=== PATIENT | female | born 1955 | race Caucasian/White ===

== ENCOUNTER 2019-03-20 08:58 | Outpatient (CLI) | payer MEDICARE, SELFPAY ==
[2019-03-20 10:40] LABS: ALT 27 U/L (14-59); AST 15 U/L (15-37); Anion Gap 9.9 mmol/L (3-11); BUN 14 mg/dL (7-18); CO2 28.1 mmol/L (21.0-32.0); CREATININE 0.64 mg/dL (0.55-1.02); Calcium 8.9 mg/dL (8.5-10.1); Chloride 99 mmol/L (98-107); Cholesterol 283 mg/dL (50-200); Glucose 310 mg/dL (70-100); HDL Cholesterol 47 mg/dL (40-60); Potassium 4.4 mmol/L (3.5-5.1); Sodium 137 mmol/L (136-145); Triglyceride 404 mg/dL (30-150)
[2019-03-20 10:43] LABS: Hemoglobin A1C 12.6 % (4.5-6.2)
[2019-03-20 11:00] LABS: LDL CHOLESTEROL 174 mg/dL (<100)
== END 2019-03-20 09:18 ==
PROVIDERS: PCP Nurse Practitioner Family; Visit Provider Nurse Practitioner Family
DX: E11.9 Type 2 diabetes mellitus without complications (principal); E66.9 Obesity, unspecified
CPT/HCPCS: 36415; 80048; 80061; 83721; 83036; 84450; 84460

== ENCOUNTER 2019-03-24 12:40 | Outpatient (REF) | payer MEDICARE, BC, SELFPAY ==
--- NOTE | 2019-03-24 11:30 | PAPFT_PTH ---
PATIENT: Galen Webster LOC: [facility] U#:[id number] AGE/SX: 63/F ROOM: RE03/24/[address]: Barbi Mcdonald : 1955 BED: DIS: 03/24/2019 SPEC #: [id number] RECD: 03/25/19 12:59 STATUS: LAUREN REQ #: [id number] RENEE: 03/24/19 11:[address]: Barbi Mcdonald DEPT: [facility] Cytology RECD BY: Haritha Chambers Tissues: 1 - CX/ENDOCX FOR PAP SMEARS Procedures: PAP THIN PREP/UVM Screening HPV DNA PROBE Comments: [id number]
== END 2019-03-24 13:00 ==
LOC: NCHCN 12:40
PROVIDERS: PCP Nurse Practitioner Family; Visit Provider Nurse Practitioner Family
DX: Z12.4 Encounter for screening for malignant neoplasm of cervix (principal); Z11.51 Encounter for screening for human papillomavirus (HPV)
CPT/HCPCS: 88142; 87624

== ENCOUNTER 2021-04-07 08:48 | Emergency (ER) | payer MEDICARE, BC, SELFPAY ==
[2021-04-07 09:02] VITALS: BP 168/79; PULSE 98; RESP 18; TEMP 36.7; O2SAT 99
--- NOTE | 2021-04-07 09:15 | DI.RAD_ITS ---
Exam(s) XR HIP RT COMPLETE AP PELVIS EXAM: XR HIP RT COMPLETE AP PELVIS CLINICAL HISTORY: right hip pain. TECHNIQUE: 2D digital imaging was performed of the right hip. Two images were obtained. AP pelvis a nd lateral right hip views were obtained. COMPARISON: No exams were available for comparison FINDINGS: BONES: No acute fracture is present. No bony destructive lesion is seen. JOINTS: No dislocation present. There are marked degenerative changes of the right hip with significa nt loss of the joint space, subchondral sclerosis and cysts and hypertrophic spurring. Degenerative changes are seen in the lower lumbar spine and left hip. SOFT TISSUE: Normal. IMPRESSION: No acute fracture or dislocation. Severe osteoarthritis of the right hip. DATA REPOSITORY: RADIATION DOSE DELIVERED:
--- NOTE | 2021-04-07 09:15 | DI.RAD_ITS ---
Exam(s) XR KNEE RT 3V AP,LAT,ANTONIO EXAM: XR KNEE RT 3V AP,LAT,ANTONIO CLINICAL HISTORY: right knee pain. TECHNIQUE: 2D digital imaging was performed of the right knee. Three views obtained. AP, lateral an d PA tunnel views were obtained. COMPARISON: No exams were available for comparison FINDINGS: BONES: No acute fracture is present. No bony destructive lesion is seen. JOINTS: There are severe degenerative changes of the right knee with joint space narrowing and periar ticular spurring most marked in the lateral femoral tibial joint and the patellofemoral joint. There is a small suprapatellar joint effusion. SOFT TISSUE: Normal. IMPRESSION: 1. No acute fracture or dislocation. 2. Severe osteoarthritis of the right knee. DATA REPOSITORY: RADIATION DOSE DELIVERED:
--- NOTE | 2021-04-07 09:15 | DI.RAD_ITS ---
Exam(s) XR ELBOW RT COMPLETE EXAM: XR ELBOW RT COMPLETE CLINICAL HISTORY: right elbow pain. TECHNIQUE: 2D digital imaging was performed of the left elbow. Images were obtained. AP, lateral and oblique views were obtained. COMPARISON: No exams were available for comparison FINDINGS: BONES: No acute fracture is present. No bony destructive lesion is seen. JOINTS: The elbow is normally aligned. No joint effusion is seen. Mild degenerative changes are prese nt. SOFT TISSUE: Normal. IMPRESSION: No acute fracture or dislocation. DATA REPOSITORY: RADIATION DOSE DELIVERED:
[2021-04-07] MEDS: Acetaminophen 325 MG TAB 650 MG PO (09:42)
--- NOTE | 2021-04-07 10:35 | ED.GENADUL_ITS ---
Discharge Plan Disposition Patient Disposition: HOME Condition: Stable Discharge Details Clinical Impression: Acute hip pain, Elbow injury, Acute knee pain Primary Care Provider: Barbi Mcdonald ED Provider: Haritha Monet Home Meds and New Rx's Prescriptions: New diclofenac sodium 1 % kit 4 g topical QID Qty: 1 RF: 0 Continued (DME) compression socks, large [Medicool's Diasox Large] 1 EACH misc 1 ea EXT DAILY RF: 0 lisinopril 5 MG tablet 5 mg PO DAILY RF: 0 metformin 500 MG tablet extended release 24 hr 1,000 mg PO DAILY RF: 0 atorvastatin 40 mg tablet 40 mg PO DAILY RF: 0 aspirin 81 mg Tablet 81 mg PO DAILY RF: 0 Discharge Instructions Instructions: Knee Pain (ED), Leg Pain (ED) Additional Instructions: Take Tylenol 650 mg as needed for pain Voltaren gel topically Use your assistive devices Follow-up with primary care physician for repeat x-ray in 1 week with persistent pain Return earlier should you have new or worsening complaints Referrals: Barbi Mcdonald [Primary Care Provider] - Discharge Data Discharge Date/Time-TO BE ENTERED AT DEPARTURE: 04/07/21 10:50 Medical Decision Making X-ray shows significant arthritis but do not show any evidence of acute fracture I did recommend tetanus, patient has declined, she is aware of the risk associated with this decision She will follow up with her orthopedist Repeat x-ray in 1 week pain recommended Has pain at home Ambulatory with antalgic steady gait Voltaren gel supplied We will take Tylenol Return precautions discussed and patient expressed understanding, discharged home in stable condition Blood pressure recheck by primary care physician in the setting recommended, no signs or symptoms related to his elevated blood pressure appreciated on exam Medical Records Medical records reviewed: Yes I reviewed the patient's medical records. HPI General Mode of arrival: ambulatory . Date/Time Provider Initiated Documentation: 04/07/21 09:00 . Limitations to Documentation: no limitations . Information obtained by: patient . HPI Narrative: This 65-year-old female presents with mechanical fall over her dog yesterday. She denies any head injury or loss of consciousness. She has pain to the right elbow, right hip, and right knee. She denies any strength or sensation change. Pain exacerbated with walking. Denies any flank or abdominal pain. Denies any associated dizziness. Related Data Home Medications Medication Instructions Recorded Confirmed compression socks, large 12/31/13 04/01/14 [Medicool's Diasox Large] lisinopril 5 mg PO DAILY 04/01/14 04/07/21 metformin 1,000 mg PO DAILY 04/01/14 04/07/21 aspirin 81 mg PO DAILY 04/07/21 04/07/21 atorvastatin 40 mg PO DAILY 04/07/21 04/07/21 diclofenac sodium 4 g TOPICAL QID #1 ea 04/07/21 Previous Rx's Medication Instructions Recorded diclofenac sodium 4 g TOPICAL QID #1 ea 04/07/21 Allergies Allergy/AdvReac Type Severity Reaction Status Date / Time venom-honey bee Allergy Intermediate Unverified 04/07/21 09:13 [bee venom (honey bee)] General Stated Complaint: Orthopedic LAINA: 4 Review of Systems All systems reviewed & are unremarkable except as noted in HPI and below PFSH Social History Smoking/Tobacco Use Status: Never Smoking risk assessment performed?: Yes Alcohol Intake: never Drug use: Never Substance use type: does not use Exam Const General: cooperative, comfortable and no acute distress Orientation: alert and oriented x3 HENMT Head: normal to inspection Eyes Pupils: PERRL Neck Other: No midline tenderness Chest Chest: normal inspection of the chest Other: No tenderness or crepitus Resp Effort & Inspection: normal respiratory effort Auscultation: clear to auscultation bilaterally Cardio Rate: regular rate Rhythm: regular rhythm GI Inspection: normal to inspection Auscultation: normal bowel sounds Other: No abdominal tenderness at this trauma Back/Spine/Pelvis Back: no CVA tenderness Thoracic/Lumbar Spine: thoracic and lumbar spine normal to inspection Skin General skin exam: no rashes or lesions noted Neuro General: patient alert and patient oriented x3 Cranial Nerves: CN's II-XI intact bilaterally Gait: normal gait Other: GCS 15, sensation intact extremities Extrem Other: Mild tenderness with abrasion to right elbow with abrasion noted, range of motion intact, strength and sensation intact, no tenderness to shoulder or wrist Tenderness to palpation to right hip and knee, mild swelling noted to right knee, ambulatory with antalgic gait No obvious laxity or deformity, neurovascularly Course Vital Signs Vital signs: Vital Signs Temperature 36.7 C 04/07/21 09:02 Pulse 98 H 04/07/21 09:02 Respiratory Rate 18 04/07/21 09:02 Blood Pressure 168/79 H 04/07/21 09:02 Pulse Oximetry 99 04/07/21 09:02 Temperature 36.7 C 04/07/21 09:02 Temperature Source Skin 04/07/21 09:02 Pulse 98 H 04/07/21 09:02 Respiratory Rate 18 04/07/21 09:02 Respiratory Effort 04/07/21 09:07 Blood Pressure 168/79 H 04/07/21 09:02 Pulse Oximetry 99 04/07/21 09:02 Oxygen Delivery Method Room Air 04/07/21 09:02 Oxygen Flow Rate 0 04/07/21 09:02 Pain Level 5 04/07/21 09:42 Comment 04/07/21 09:02
== END 2021-04-07 10:50 | disposition home or self-care (01) ==
PROVIDERS: Emergency Provider Physician Assistant; PCP Nurse Practitioner Family
DX: M25.551 Pain in right hip (principal); M25.521 Pain in right elbow; M25.561 Pain in right knee; W18.39XA Other fall on same level, initial encounter
CPT/HCPCS: 73562; 99284; 73080; 73502; 99283

== ENCOUNTER 2021-07-12 02:43 | Outpatient (CLI) | payer MEDICARE, BC, SELFPAY ==
[2021-07-12 16:53] LABS: ALT 33 U/L (14-59); AST 16 U/L (15-37); Anion Gap 9.1 mmol/L (3-11); BUN 20 mg/dL (7-18); CO2 26.9 mmol/L (21.0-32.0); CREATININE 0.7 mg/dL (0.55-1.02); Calcium 9.4 mg/dL (8.5-10.1); Calculated LDL 65 mg/dL (<100); Chloride 101 mmol/L (98-107); Cholesterol 169 mg/dL (<200); Glucose 208 mg/dL (74-106); HDL Cholesterol 69 mg/dL (40-60); Potassium 4.9 mmol/L (3.5-5.1); Sodium 137 mmol/L (136-145); Triglyceride 178 mg/dL (<150)
== END 2021-07-12 02:44 | disposition home or self-care (01) ==
LOC: LBO 02:43
PROVIDERS: PCP Nurse Practitioner Family; Visit Provider Nurse Practitioner Family
DX: E78.5 Hyperlipidemia, unspecified (principal); E11.9 Type 2 diabetes mellitus without complications
CPT/HCPCS: 36415; 80048; 80061; 84450; 84460

== ENCOUNTER 2021-07-20 00:16 | Emergency (ER) | payer MEDICARE, SELFPAY ==
[2021-07-20 00:27] VITALS: BP 178/77; PULSE 103; RESP 18; TEMP 36.6; O2SAT 98
--- NOTE | 2021-07-20 00:47 | ED.GENADUL_ITS ---
Discharge Plan Disposition Patient Disposition: [facility] Condition: Stable Discharge Details Clinical Impression: Complex laceration of left ear, Laceration of scalp, Thyroid nodule Primary Care Provider: Barbi Mcdonald ED Provider: Liborio Michelle Meds and New Rx's Prescriptions: No Action (DME) compression socks, large [Medicool's Diasox Large] 1 EACH misc 1 ea EXT DAILY RF: 0 lisinopril 5 MG tablet 5 mg PO DAILY RF: 0 metformin 500 MG tablet extended release 24 hr 1,000 mg PO DAILY RF: 0 atorvastatin 40 mg tablet 40 mg PO DAILY RF: 0 aspirin 81 mg Tablet 81 mg PO DAILY RF: 0 diclofenac sodium 1 % kit 4 g topical QID Qty: 1 RF: 0 Medical Decision Making Patient status post slip and fall in her kitchen striking the metal frame of the chair. She has a scalp laceration as well as a through and through laceration of the left ear as well as laceration behind the ear over the mastoid. She is neurologically intact. She is not on blood thinners. She has no cervical spine tenderness. She is unsure of her last tetanus but review of her medical records from primary care shows this was 2013. She has therefore been given tetanus here. Cartilage is exposed due to ear laceration and she is given oral cephalexin. CT scan of head and cervical spine obtained and negative for acute trauma. There is a thyroid nodule that will need outpatient follow up. Scalp laceration irrigated and cleaned. This was repaired with 2 la nena. The laceration involving her ear is complex with cartilage exposure. This was irrigated and cleaned and packed wet-to-dry dressing. Call placed to [facility] for transfer for ear repair. Covid testing done here and negative. Discussed with plastics and with ED at [facility]. Patient accepted as ED to ED transfer for repair of complex ear laceration. Will transfer by S when unit available. HPI General Mode of arrival: ambulatory . Date/Time Provider Initiated Documentation: 07/20/21 00:40 . Limitations to Documentation: no limitations . Information obtained by: patient and RN notes reviewed . HPI Narrative: Patient presents to the ED with laceration to left side of head and left ear status post slip and fall in her kitchen. Patient was trying to pull a 50 pound sack of grain across the kitchen floor. She slipped and fell striking a metal frame of a chair. She did not have loss of consciousness but was dazed for period of time. She was able to get up and ambulate. She held pressure on her ear to stop the bleeding. She denies any headache or neurologic changes currently. She denies any nausea or vomiting. She is unsure of her last tetanus shot. She reports that her daughter has COVID. Patient herself is asymptomatic. Related Data Home Medications Medication Instructions Recorded Confirmed compression socks, large 12/31/13 04/01/14 [Medicool's Diasox Large] lisinopril 5 mg PO DAILY 04/01/14 04/07/21 metformin 1,000 mg PO DAILY 04/01/14 04/07/21 aspirin 81 mg PO DAILY 04/07/21 04/07/21 atorvastatin 40 mg PO DAILY 04/07/21 04/07/21 diclofenac sodium 4 g TOPICAL QID #1 ea 04/07/21 Previous Rx's Medication Instructions Recorded diclofenac sodium 4 g TOPICAL QID #1 ea 04/07/21 Allergies Allergy/AdvReac Type Severity Reaction Status Date / Time venom-honey bee Allergy Intermediate Unverified 04/07/21 09:13 [bee venom (honey bee)] General Stated Complaint: Laceration LAINA: 4 Review of Systems Narrative: As documented in HPI otherwise negative as below. Const: no fever, chills, weakness Resp: no cough, SOB, pleuritic pain CV: no CP, diaphoresis, edema, syncope GI: no abdominal pain, nausea, vomiting, diarrhea Neuro: no headache, numbness, focal weakness, confusion PFSH All Active Problems (Updated 07/20/21 @ 05:13 by Liborio Michelle MD) Complex laceration of left ear (Acute) Laceration of scalp (Acute) Thyroid nodule (Acute) Acute hip pain (Acute) Elbow injury (Acute) Acute knee pain (Acute) Medical History (Updated 07/20/21 @ 05:13 by Liborio Michelle MD) Diabetes mellitus HTN (hypertension) Hypercholesterolemia Obesity Surgical History (Updated 07/20/21 @ 03:40 by Liborio Michelle MD) S/P arthroscopic knee surgery S/P oophorectomy Social History Smoking/Tobacco Use Status: Never Smoking risk assessment performed?: Yes Alcohol Intake: never Drug use: Never Substance use type: does not use Do you feel safe at home: Yes Do you feel safe in your relationship?: Yes Exam Narrative Exam Narrative: Const: Obese female in NAD. HEENT: NC. Normal facial exam. 1.5 cm laceration to left temporal scalp. Through and through laceration of left ear involving the pinna with cartilage exposed. 1.5 cm laceration behind ear over mastoid. Eyes: PERRL and EOMI. Neck: Trachea midline. No posterior midline cervical spine tenderness. Lungs: Normal respiratory effort. No chest wall tenderness. Cor: RRR. Good radial pulses. GI: Soft. NT/ND. Neuro: A+O x 3. Normal speech, mentation, gait. Cranial nerves II - XII grossly intact. No gross motor or sensory deficit. Ext: Normal ROM with no deformity or tenderness. Skin: Warm and dry with lacerations as described. Course Vital Signs Vital signs: Vital Signs Temperature 97.9 F 07/20/21 00:27 Pulse 103 H 07/20/21 00:27 Respiratory Rate 18 07/20/21 00:27 Blood Pressure 178/77 H 07/20/21 00:27 Pulse Oximetry 98 07/20/21 00:27 Temperature 97.9 F 07/20/21 00:27 Temperature Source Tympanic 07/20/21 00:27 Pulse 103 H 07/20/21 00:27 Respiratory Rate 18 07/20/21 00:27 Respiratory Effort 07/20/21 00:30 Blood Pressure 178/77 H 07/20/21 00:27 Blood Pressure Position Supine 07/20/21 00:27 Pulse Oximetry 98 07/20/21 00:27 Oxygen Delivery Method Room Air 07/20/21 00:27 Oxygen Flow Rate 0 07/20/21 00:27 Pain Level 5 07/20/21 00:27 Procedures Laceration Laceration 1: Site: scalp Side (If applicable): left Size (cm): 1.5 Description: linear Depth: simple, single layer Pre-repair: wound explored and irrigated extensively Skin layer closed with: other (la nena) Number of sutures: 2
--- NOTE | 2021-07-20 01:00 | DI.CT_ITS ---
Exam(s) CT HEAD CERVICAL SPINE WO EXAM: CT HEAD CERVICAL SPINE WO CLINICAL HISTORY: fall. TECHNIQUE: Imaging Protocol: Axial computed tomography images with coronal and sagittal reformatted images were created and reviewed COMPARISON: No exams were available for comparison FINDINGS: CT Head: Ventricles and Extra axial spaces: Normal in size and morphology for the patient's age. Hemorrhage: None. Cerebral parenchyma: Normal. Midline shift: None. Brainstem/Cerebellum: Normal. Calvarium: Normal. Visualized Paranasal sinuses/Mastoids: Clear. Soft Tissues: There is soft tissue swelling overlying the left parietal bone. There is a small amoun t of subcutaneous air in the soft tissues posterior to the left external auditory canal. No soft tis med is seen in the external auditory canals. CT Cervical Spine: Bones: No acute fracture or subluxation. Degenerative changes are seen in the cervical spine. Soft Tissues: Unremarkable. Thyroid gland: There is a right thyroid nodule which is isodense and contains internal calcification. It measures 1.8 AP by 1.8 transverse by 2.5 craniocaudad. Lung Apices: Clear. IMPRESSION: 1. No acute intracranial process. 2. Soft tissue injury overlying the left parietal bone and posterior to the left ear. 3. No acute fracture or subluxation in the cervical spine. 4. Right thyroid nodule. Nonemergent thyroid ultrasound is recommended for further evaluation. RADIATION DOSE DELIVERED: 1,319.61mGy.cm Total DLP DATA REPOSITORY: All CT scans at this facility are submitted to the National Radiology Data Registry (NRDR) Dose Index Registry (DIR) with the [employer] (A[employer]). RADIATION OPTIMIZATION: All CT scans at this facility use at least one of these dose optimization te chniques: automated exposure control; mA and/or kV adjustment per patient size (includes targeted exa ms where dose is matched to clinical indication); or iterative reconstruction.
[2021-07-20] MEDS: Tetanus & Diphtheria Tox,ADULT 0.5 ML VIAL IM (01:33)
[2021-07-20] MEDS: Cephalexin 500 MG CAP PO (01:33)
[2021-07-20 01:34] LABS: Source Nasal/Nares
--- NOTE | 2021-07-20 02:00 | DI.VRAD_ITS ---
PROCEDURE INFORMATION: Exam: CT Head Without Contrast Exam date and time: 07/20/2021 1:07 AM Age: 65 years old Clinical indication: Other: Fall TECHNIQUE: Imaging protocol: Computed tomography of the head without contrast. COMPARISON: No relevant prior studies available. FINDINGS: Brain: Mild volume loss No hemorrhage. Unremarkable white matter. No mass effect. Cerebral ventricles: No ventriculomegaly. Paranasal sinuses: Visualized sinuses are unremarkable. No fluid levels. Mastoid air cells: Visualized mastoid air cells are well aerated. Bones/joints: Unremarkable. No acute fracture. Soft tissues: Unremarkable. IMPRESSION: No acute intracranial hemorrhage PROCEDURE INFORMATION: Exam: CT Cervical Spine Without Contrast Exam date and time: 07/20/2021 1:07 AM Age: 65 years old Clinical indication: Other: Fall TECHNIQUE: Imaging protocol: Computed tomography images of the cervical spine without contrast. COMPARISON: No relevant prior studies available. FINDINGS: Bones/joints: No acute fracture. Loss of cervical lordosis is presumably on a degenerative basis. Discs/Spinal canal/Neural foramina: Multilevel central canal and foraminal stenosis most pronounced at C5-C6 Lungs: Lung apices are normal. Soft tissues: 2.5 cm right-sided thyroid nodule. Additional calcification in the right lobe of the thyroid IMPRESSION: No acute cervical fracture Right-sided thyroid nodule which may be further characterized with sonography on a nonurgent basis if not already performed Dictated and Authenticated by: Sunny Robins MD. Ordering:SHABBIR Capone MD
[2021-07-20 02:09] VITALS: BP 165/76; PULSE 86; RESP 18; O2SAT 97
[2021-07-20 02:11] LABS: COVID-19 PCR Negative (Negative)
--- NOTE | 2021-07-20 02:43 | SUR.PHASEI ---
pt wound cleaned and wet to dry dressing placed on left ear
[2021-07-20 04:36] VITALS: BP 168/90; PULSE 92; O2SAT 98
[2021-07-20] MEDS: Acetaminophen 500 MG TAB 1000 MG PO (04:46)
== END 2021-07-20 07:14 | disposition short-term general hospital (02) ==
PROVIDERS: Emergency Provider Emergency Medicine; PCP Nurse Practitioner Family
DX: S01.312A Laceration without foreign body of left ear, initial encounter (principal); S01.01XA Laceration without foreign body of scalp, initial encounter; W01.190A Fall on same level from slipping, tripping and stumbling with subsequent striking against furniture, initial encounter
CPT/HCPCS: 12001; 87635; 90471; 99285; 70450; 72125; 99283

== ENCOUNTER 2021-08-04 01:36 | Outpatient (CLI) | payer MEDICARE, SELFPAY ==
[2021-08-04 16:15] LABS: Source Nasal/Nares
[2021-08-04 20:23] LABS: COVID-19 PCR Negative (Negative)
== END 2021-08-04 01:37 | disposition home or self-care (01) ==
LOC: LBO 01:36
PROVIDERS: PCP Nurse Practitioner Family; Visit Provider Ophthalmology
DX: Z20.822 Contact with and (suspected) exposure to COVID-19 (principal)
CPT/HCPCS: 87635

== ENCOUNTER 2021-08-07 08:19 | Day surgery (SDC) | payer MEDICARE, SELFPAY ==
[2021-08-07] MEDS: Tropicam./Phenyleph. (1/2.5%) 5 ML BTL OS ×3 (08:47→09:05)
[2021-08-07 08:59] VITALS: BP 137/89; PULSE 92; RESP 17; TEMP 36.5; O2SAT 97
--- NOTE | 2021-08-07 09:03 | ANES.PREOP_ITS ---
General Info Date of Service Date Performed: 08/07/21 Height: 5 ft 8 in Weight: 92.533 kg Body Mass Index (BMI): 31.0 Surgical Procedure: Operation Date: 08/07/21 10:40 Proposed Procedures Side Surgeon p Cataract Extraction with IOL Implant Right Denys Guillen MD Meds Allergies and Home Medications Allergies Allergy/AdvReac Type Severity Reaction Status Date / Time adhesive Allergy Intermediate Skin Rash Unverified 08/07/21 08:49 venom-honey bee Allergy Intermediate Anaphylaxis Unverified 08/07/21 08:49 [bee venom (honey bee)] Home Medication Medication Instructions Recorded Medicool's Diasox Large 12/31/13 lisinopril 2.5 mg PO DAILY 04/01/14 metformin 1,000 mg PO BID 04/01/14 aspirin 81 mg PO DAILY 04/07/21 atorvastatin 40 mg PO DAILY 04/07/21 diclofenac sodium 4 g TOPICAL QID #1 ea 04/07/21 canagliflozin [Invokana] 100 mg PO DAILY AM 07/20/21 Current Visit Medications: Current Medications Generic Name Dose Route Start Last Admin Trade Name Freq PRN Reason Stop Dose Admin Acetaminophen 1,000 mg 08/07/21 06:00 Acetaminophen 500 Mg Tab PO Q4H PRN PRN Miscellaneous Medication 0 ml 08/07/21 06:00 Prednisolone 1%, Moxifloxacin 0.5%, Nepafenac 0.1% 5ml Btl OS DIRECTED [facility] Miscellaneous Medication 0 ml 08/07/21 06:00 08/07/21 08:58 Tropicam./Phenyleph. (1/2.5%) 5 Ml Btl OS 1 drp DIRECTED [facility] Administration Tetracaine HCl 0 ml 08/07/21 06:00 Tetracaine 0.5% 4 Ml Btl OS DIRECTED [facility] PFSH Active Problems Active Problems: Problem Status Onset Code Acute hip pain M25.559 Elbow injury S59.909A Acute knee pain M25.569 Complex laceration of left ear S01.312A Laceration of scalp S01.01XA Thyroid nodule E04.1 Nuclear sclerotic cataract of right eye H25.11 Posterior subcapsular age-related cataract, right eye H25.041 Medical History Medical History Diabetes mellitus HTN (hypertension) Hypercholesterolemia Obesity Surgical History Surgical History (Updated 08/07/21 @ 08:52 by Tayler Samano) Hx of external ear surgery reattachment of left ear S/P arthroscopic knee surgery S/P oophorectomy Tobacco Smoking/Tobacco Use Status: Never Alcohol Alcohol Intake: never Substance Use Substance use: Never Substance use type: does not use Vital Signs and Lab Results Vital Signs Most Recent Vital Signs in EMR: Temp Pulse Resp BP Pulse Ox 36.5 C 92 H 17 137/89 97 08/07/21 08:59 08/07/21 08:59 08/07/21 08:59 08/07/21 08:59 08/07/21 08:59 Point of Care Results Point of Care Results: Finger Stick Blood Glucose 183 08/07/21 08:33 Lab Results Blood Type / Crossmatch: No Data to Display Complete Blood Count: No Data to Display Complete Metabolic Panel: Sodium Level 137 mmol/L (136-145) 07/12/21 14:35 07/12/21 Potassium Level 4.9 mmol/L (3.5-5.1) 07/12/21 14:35 07/12/21 Chloride Level 101 mmol/L (98-107) 07/12/21 14:35 07/12/21 Carbon Dioxide Level 26.9 mmol/L (21.0-32.0) 07/12/21 14:35 07/12/21 Blood Urea Nitrogen 20 mg/dL (7-18) H 07/12/21 14:35 07/12/21 Creatinine 0.7 mg/dL (0.55-1.02) 07/12/21 14:35 07/12/21 Estimated GFR/1.73 m2 >= 60.00 (mL/min/1.73m2) 07/12/21 14:35 07/12/21 Calcium Level 9.4 mg/dL (8.5-10.1) 07/12/21 14:35 07/12/21 Glucose Level 208 mg/dL (74-106) H 07/12/21 14:35 07/12/21 Liver Function Panel: Alanine Aminotransferase (ALT/SGPT) 33 U/L (14-59) 07/12/21 14:35 07/12/21 Aspartate Amino Transf (AST/SGOT) 16 U/L (15-37) 07/12/21 14:35 07/12/21 Coagulation Panel: No Data to Display Cardiac Panel: No Data to Display Arterial Blood Gas: No Data to Display Venous Blood Gas: No Data to Display Pancreas Panel: No Data to Display Thyroid Panel: No Data to Display Infectious Disease: Coronavirus (COVID-19)(PCR) Negative (Negative) 08/04/21 10:49 08/04/21 Coronavirus 2019 Source Nasal/Nares 08/04/21 10:49 08/04/21 Blood Cultures: No Data to Display Toxicology Panel: No Data to Display Anesthesia Assessment and Plan Anesthesia History Personal History: No History of Anesthesia Complications Family History: No Family History of Anesthesia Complications Exercise Tolerance Exercise Tolerance: Metabolic Equivalents>4 Pertinent Negatives Pertinent Negatives: No Symptoms of GERD, No Major Cardiovascular Symptoms or Complaints and No Major Pulmonary Symptoms or Complaints Cardiac & Pulmonary Exam Cardiac Exam: Normal S1/S2 Heart Sounds Pulmonary Exam: Clear Bilateral Breath Sounds Implantable Cardiac Device Does patient have a Pacemaker or an ICD?: No Airway Exam Known Difficult Airway: No Mallampati Class: 3 Mouth Opening: Normal (> 3cm) Thyromental Distance: Greater than 3 cm Neck Range of Motion: Full ROM Neck Circumference: Normal Teeth Condition: Generalized Poor Dentition and Loose or Chipped Tooth Numberin. Broken per patient 2. Broken per patient 3. Broken per patient ASA Classification ASA Score: ASA 2 Emergency Case?: No NPO Status NPO Status: NPO Clears >2 hours, Solids >8 hours Anesthesia Plan Resuscitation Status: Full Code Anesthesia Technique: MAC Anesthesia Airway Planned: Natural Airway Monitors Used: Standard Monitors
[2021-08-07 09:50] VITALS: BMI 31.0
[2021-08-07] MEDS: Tetracaine 0.5% 4 ML BTL OS (09:58)
[2021-08-07] MEDS: Balanced Salt Soln.-PLUS 500 ML BAG (09:59)
[2021-08-07] MEDS: Duovisc Viscoelastic System EACH 1 EACH (09:59)
[2021-08-07] MEDS: Lidocaine 2% Jelly 6 ML SYR (10:00)
[2021-08-07] MEDS: Povidone-Iodine Ophth 30 ML BTL (10:01)
[2021-08-07] MEDS: Triamcinolone 40 MG/ML VIAL (10:02)
[2021-08-07 10:15] VITALS: BP 145/90; PULSE 87; RESP 16; TEMP 36.6; O2SAT 100
--- NOTE | 2021-08-07 10:15 | W.PM.DSUDISC ---
Discharge Plan Disposition Patient Disposition: HOME Condition: Good Discharge Details Attending Provider: Denys Guillen Primary Care Provider: Barbi Mcdonald Home Meds and New Rx's Prescriptions: No Action (DME) Medicool's Diasox Large 1 EACH misc 1 ea EXT DAILY RF: 0 lisinopril 5 MG tablet 2.5 mg PO DAILY RF: 0 metformin 500 MG tablet extended release 24 hr 1,000 mg PO BID RF: 0 atorvastatin 40 mg tablet 40 mg PO DAILY RF: 0 aspirin 81 mg Tablet 81 mg PO DAILY RF: 0 diclofenac sodium 1 % kit 4 g topical QID Qty: 1 RF: 0 Invokana 100 mg tablet 100 mg PO DAILY AM RF: 0 Discharge Instructions Stand Alone Forms: Post-op Topical CataractKaty (DSU) Discharge Orders Discharge Orders: Discharge Order (Routine); Ordered 08/07/21 Ordered By: Denys Guillen DS: Diagnosis Discharge Diagnosis (1) Nuclear sclerotic cataract of right eye: Status: Resolved (2) Posterior subcapsular age-related cataract, right eye: Status: Resolved
--- NOTE | 2021-08-07 10:16 | ROE_ITS ---
Date of service: 08/07/21 Time of Service: 10:16 Operative Note Operative Note DATE OF PROCEDURE: 08/07/21 PRE-OP DIAGNOSIS: Nuclear/posterior subcapsular cataract, right eye POST-OP DIAGNOSIS: same PROCEDURE: Cataract extraction using phacoemulsification with intraocular lens implant, right eye SURGEON: Denys Guillen ANESTHESIA TYPE: Local By Surgeon and MAC Refer to Anesthesia Record ESTIMATED BLOOD LOSS: 0 PATHOLOGY: none sent COMPLICATIONS: None Patient was transported to: same day Patient's condition: stable Implants: Shravan & Shravan/SIGIFREDO Tecnis [id number] Indications: Progressive visual loss due to cataract, right eye Procedure Description: CATARACT SURGERY OPERATIVE REPORT PREOPERATIVE DIAGNOSIS: 1. Nuclear/posterior subcapsular cataract, right eye POSTOPERATIVE DIAGNOSIS: Same OPERATION: 1. Cataract extraction using phacoemulsification with posterior chamber intraocular lens implant, right eye. IOL: IOL Regional Clinical Director/Model: Shravan & Shravan / SIGIFREDO Tecnis [id number] IOL Power: + 11.5 diopters IOL Serial Number: [id number] Optic Diameter: 6.0mm Haptic/Overall Diameter: 13.0mm PHACO INFO: Michael Gema Touchurion Vision System with OZil and Active Fluidics Cumulative Dispersed Energy (CDE): 7.80 seconds SURGEON: Denys Guillen MD, JAIR ANESTHESIA: Monitored Anesthesia Care (MAC), with local sub-tenon's anesthetic infiltration COMPLICATIONS: None SPECIMENS: None INDICATIONS FOR PROCEDURE: The patient is a 65-year-old lady with history of diminished visual acuity in her right eye secondary to the development of nuclear and posterior subcapsular cataract. She also has a history of diabetic retinopathy with macular edema in the right eye. The option of cataract surgery was offered to the patient and she wished to proceed. PROCEDURE: The correct surgical eye was identified and marked as the right eye and the pupil was dilated in the preoperative area using mydriatics and cycloplegics. The dilated pupil size was 7.0 mm. She elected to proceed without oral sedation. The patient was brought to the operating room where cardiopulmonary monitoring was instituted and surgical time-out was performed, confirming the correct operative eye and IOL power. Topical anesthesia was administered and ophthalmic povidone-iodine 5% was instilled into the conjunctival fornices. Lidocaine gel was applied to the cornea and the neil-ocular area was prepped with Betadine 10% solution and draped in the usual sterile fashion for intraocular surgery, including an aperture drape. A Tegaderm transparent film dressing was cut in half and used to cover the lashes and lid margins. Care was taken to sequester the lashes and lid margins under the Tegaderm dressing. A lid speculum was placed between the lids of the operative eye and the [employer] operating microscope was maneuvered into position. Donavon scissors were then used to make a conjunctival buttonhole approximately 6mm posterior to the limbus in the inferonasal quadrant. Blunt dissection was carried out to expose bare sclera, and a blunt-tipped sub-tenon?s anesthesia cannula was introduced and passed posteriorly along the globe where non- preserved plain lidocaine was injected into posterior sub-Tenon?s space. A sideport knife was used to make a paracentesis port inferotemporally. Intraocular phenylephrine/lidocaine was injected into the anterior chamber. The anterior chamber was filled with viscoelastic. A 2.4mm keratome knife was used to create a half-thickness groove at the limbus and then to construct a three- plane near-clear corneal tunnel extending 2.0mm into clear cornea superiortemporally. A flap was raised on the anterior capsule and capsulorhexis forceps were used to complete a continuous curvilinear capsulorhexis of 5.0 mm. Balanced salt solution was then used to perform cortical cleaving hydrodissection and nuclear hydrodelineation until the lens could be freely rotated within the capsular bag. The lens nucleus was then disassembled and removed within the capsular bag and iris plane using phacoemulsification. Residual cortical material was removed using the I/A handpiece. The posterior capsule was carefully polished to remove as much residual lens epithelial cells as safely possible. The capsular bag was then inflated and the anterior chamber deepened with viscoelastic. The lens implant described above was inserted into the capsular bag using the SIGIFREDO [place] Injector. A Kuglen hook was used to dial the IOL into position. Residual viscoelastic was then removed first from posterior to the IOL, then from the anterior chamber using the I/A handpiece. The lens implant was noted to center nicely within the capsular bag. The incisions were stromally hydrated, and the anterior chamber was reformed using BSS. Then 0.5cc of moxifloxacin 1.0mg/ml were injected into the capsular bag and anterior chamber. The incisions were checked with a Weck spear and found to be secure. At the conclusion of the procedure, Kenalog 20 mg in 0.5 cc were injected into posterior sub-tenon's space using the anesthesia injection cannula. Several drops of ophthalmic povidone-iodine 5% were then applied to the eye followed by two drops of Imprimis combination prednisolone/moxifloxacin/nepafenac solution. The drapes were removed and a clear plastic protective eye shield was placed over the eye. The patient was then returned to Same Day Surgery in stable condition.
--- NOTE | 2021-08-07 14:06 | W.ANESPOSTOP ---
Postoperative Evaluation Date, Time and Location Date Performed: 08/07/21 Time Performed: 10:55 Patient Location: Day Surgery Unit Vital Signs Most Recent Imported Vital Signs: Most Recent Vital Signs Temp Pulse Resp BP Pulse Ox 36.6 C 87 16 145/90 H 100 08/07/21 10:15 08/07/21 10:15 08/07/21 10:15 08/07/21 10:15 08/07/21 10:15 Pain Score Most Recent Pain Score: Most Recent Pain Score Pain Level 0 08/07/21 10:15 Assessment Mental Status: Awake (Alert & Oriented to Patient Baseline) Airway and Respiratory Function: Patent airway with normal (patient baseline) respiratory exam Cardiovascular Function: Hemodynamically Stable Hydration Status: Adequately Hydrated Nausea & Vomiting: No Nausea or Vomiting Pain: Pt. Denies Any Pain Peripheral Nerve Block: Patient did not receive a nerve block
--- NOTE | 2021-08-07 14:07 | W.ANESPOSTOP ---
Postoperative Evaluation Date, Time and Location Date Performed: 08/07/21 Time Performed: 14:07 Patient Location: Day Surgery Unit (Seen earlier. ) Vital Signs Most Recent Imported Vital Signs: Most Recent Vital Signs Temp Pulse Resp BP Pulse Ox 36.6 C 87 16 145/90 H 100 08/07/21 10:15 08/07/21 10:15 08/07/21 10:15 08/07/21 10:15 08/07/21 10:15 Pain Score Most Recent Pain Score: Most Recent Pain Score Pain Level 0 08/07/21 10:15 Assessment Mental Status: Awake (Alert & Oriented to Patient Baseline) Airway and Respiratory Function: Patent airway with normal (patient baseline) respiratory exam Cardiovascular Function: Hemodynamically Stable Hydration Status: Adequately Hydrated Nausea & Vomiting: No Nausea or Vomiting Pain: Pt. Denies Any Pain Peripheral Nerve Block: Other (Local by Dr. Guillen)
== END 2021-08-07 10:51 | disposition home or self-care (01) ==
PROVIDERS: PCP Nurse Practitioner Family; Visit Provider Ophthalmology
PROC: (CPT 66984; principal; 2021-08-07 10:30)
DX: H25.041 Posterior subcapsular polar age-related cataract, right eye (principal); E11.9 Type 2 diabetes mellitus without complications; I10 Essential (primary) hypertension; E78.5 Hyperlipidemia, unspecified
CPT/HCPCS: 66984; V2632

== ENCOUNTER 2021-08-23 01:06 | Outpatient (CLI) | payer MEDICARE, SELFPAY ==
[2021-08-23 12:16] LABS: Source Nasal/Nares
[2021-08-23 16:25] LABS: COVID-19 PCR Negative (Negative)
== END 2021-08-23 01:07 | disposition home or self-care (01) ==
LOC: LBO 01:06
PROVIDERS: PCP Nurse Practitioner Family; Visit Provider Ophthalmology
DX: Z20.822 Contact with and (suspected) exposure to COVID-19 (principal); Z01.811 Encounter for preprocedural respiratory examination
CPT/HCPCS: 87635

== ENCOUNTER 2021-08-25 10:36 | Day surgery (SDC) | payer MEDICARE, SELFPAY ==
--- NOTE | 2021-08-25 07:15 | HPE_ITS ---
Assessment and Plan Assessment and plan (1) Nuclear sclerotic cataract of left eye: Status: Chronic Assessment and plan: Visually significant nuclear cataract of the left eye. Plan: Cataract extraction with lens implantation of the left eye (2) Posterior subcapsular age-related cataract of left eye: Status: Acute Assessment and plan: Visually significant posterior subcapsular cataract of the left eye. Plan: Cataract extraction with lens implantation of the left eye History of Present Illness History of Present Illness Chief Complaint: Decreased vision left eye Narrative: The patient is a 65-year-old lady who presented with complaints of diminished visual acuity in both eyes. She was noted to have moderate bilateral cataracts in both eyes, with diabetic retinopathy in both eyes, with macular edema of the right eye. She underwent cataract surgery in the right eye on 08/07/2021. Postoperatively she has regained uncorrected visual acuity of 20/30 in the right eye. She now presents for cataract surgery in the left eye. Review of Systems All systems reviewed & are unremarkable except as noted in HPI and below PFSH All Active Problems (Updated 08/25/21 @ 13:02 by Denys Guillen MD) Posterior subcapsular age-related cataract of left eye (Acute) Nuclear sclerotic cataract of left eye (Chronic) Acute hip pain (Acute) Elbow injury (Acute) Acute knee pain (Acute) Medical History Diabetes mellitus HTN (hypertension) Hypercholesterolemia Obesity Surgical History Hx of external ear surgery reattachment of left ear S/P arthroscopic knee surgery S/P oophorectomy Social History Smoking/Tobacco Use Status: Never Smoking risk assessment performed?: Yes Alcohol Intake: never Drug use: Never Substance use type: does not use Do you feel safe at home: Yes Additional Social history: lives alone Meds Allergies and Home Medications Allergies Allergy/AdvReac Type Severity Reaction Status Date / Time adhesive Allergy Intermediate Skin Rash Verified 08/25/21 11:47 venom-honey bee Allergy Intermediate Anaphylaxis Verified 08/25/21 11:47 [bee venom (honey bee)] Home Medications Medication Instructions Recorded Confirmed Type compression socks, large 12/31/13 08/25/21 History (MedicTC Ice Cream's Diasox Large) lisinopril 5 mg tablet 2.5 mg PO DAILY 04/01/14 08/25/21 History aspirin 81 mg tablet 81 mg PO DAILY 04/07/21 08/25/21 History atorvastatin 40 mg tablet 40 mg PO DAILY 04/07/21 08/25/21 History diclofenac sodium 1 % gel topical 4 g TOPICAL QID #1 ea 04/07/21 08/25/21 Rx kit canagliflozin 100 mg tablet 100 mg PO DAILY AM 07/20/21 08/25/21 History (Invokana) metformin 1,000 mg tablet 1,000 mg PO BID 08/25/21 08/25/21 History vitamin B complex 1 tab PO DAILY 08/25/21 08/25/21 History Exam Eyes Other: Uncorrected visual acuity is 20/30 right eye, corrected visual acuity 20/30 left eye. Intraocular pressure is 9 right eye, 10 left eye. Pupil exam is normal. External examination is unremarkable. Slit-lamp examination reveals a well- positioned PCIOL OD with clear posterior capsule. Left eye shows 2+ nuclear with 1+ posterior subcapsular cataract. Funduscopic examination reveals disc cupping of 0.55 OU with normal retinal vasculature. There is mild nonproliferative diabetic retinopathy present in both eyes. Diabetic macular edema is present in the right eye. No vitreous hemorrhages present. Resp Auscultation: clear to auscultation bilaterally Cardio Rhythm: regular rhythm
[2021-08-25 11:37] VITALS: BP 133/99; PULSE 100; RESP 16; TEMP 36.5; O2SAT 96
[2021-08-25] MEDS: Tropicam./Phenyleph. (1/2.5%) 5 ML BTL OS ×3 (11:49→11:59)
--- NOTE | 2021-08-25 12:31 | W.ANESPRE ---
General Info Date of Service Date Performed: 08/25/21 Height: 5 ft 8 in Weight: 89.5 kg Body Mass Index (BMI): 29.9 Surgical Procedure: Operation Date: 08/25/21 12:55 Proposed Procedure Side Surgeon p Cataract Extraction with IOL Implant Left Denys Guillen MD Meds Allergies and Home Medications Allergies Allergy/AdvReac Type Severity Reaction Status Date / Time adhesive Allergy Intermediate Skin Rash Verified 08/25/21 11:47 venom-honey bee Allergy Intermediate Anaphylaxis Verified 08/25/21 11:47 [bee venom (honey bee)] Home Medication Medication Instructions Recorded compression socks, large 12/31/13 (Medicool's Diasox Large) lisinopril 5 mg tablet 2.5 mg PO DAILY 04/01/14 aspirin 81 mg tablet 81 mg PO DAILY 04/07/21 atorvastatin 40 mg tablet 40 mg PO DAILY 04/07/21 diclofenac sodium 1 % gel topical 4 g TOPICAL QID #1 ea 04/07/21 kit canagliflozin 100 mg tablet 100 mg PO DAILY AM 07/20/21 (Invokana) metformin 1,000 mg tablet 1,000 mg PO BID 08/25/21 vitamin B complex 1 tab PO DAILY 08/25/21 Current Visit Medications: Current Medications Generic Name Dose Route Start Last Admin Trade Name Freq PRN Reason Stop Dose Admin Acetaminophen 1,000 mg 08/25/21 06:00 Acetaminophen 500 Mg Tab PO Q4H PRN PRN Miscellaneous Medication 0 ml 08/25/21 06:00 Prednisolone 1%, Moxifloxacin 0.5%, Nepafenac 0.1% 5ml Btl OS DIRECTED [facility] Miscellaneous Medication 0 ml 08/25/21 06:00 08/25/21 11:59 Tropicam./Phenyleph. (1/2.5%) 5 Ml Btl OS 1 drp DIRECTED [facility] Administration Tetracaine HCl 0 ml 08/25/21 06:00 Tetracaine 0.5% 4 Ml Btl OS DIRECTED HENRY PFSH Active Problems Active Problems: Problem Status Onset Code Posterior subcapsular age-related cataract of left eye H25.042 Nuclear sclerotic cataract of left eye H25.12 Acute hip pain M25.559 Elbow injury S59.909A Acute knee pain M25.569 Nuclear sclerotic cataract of right eye H25.11 Posterior subcapsular age-related cataract, right eye H25.041 Medical History Medical History Diabetes mellitus HTN (hypertension) Hypercholesterolemia Obesity Medical History Comments:: Recent la nena removed from left head/ear area (ear reattached) from previous fall two weeks ago Surgical History Surgical History Hx of external ear surgery reattachment of left ear S/P arthroscopic knee surgery S/P oophorectomy Tobacco Smoking/Tobacco Use Status: Never Alcohol Alcohol Intake: never Substance Use Substance use: Never Substance use type: does not use Vital Signs and Lab Results Vital Signs Most Recent Vital Signs in EMR: Most Recent Vital Signs Temp Pulse Resp BP Pulse Ox 36.5 C 100 H 16 133/99 H 96 08/25/21 11:37 08/25/21 11:37 08/25/21 11:37 08/25/21 11:37 08/25/21 11:37 Point of Care Results Point of Care Results: Finger Stick Blood Glucose 174 08/25/21 11:37 Lab Results Blood Type / Crossmatch: No Data to Display Complete Blood Count: No Data to Display Complete Metabolic Panel: No Data to Display Liver Function Panel: No Data to Display Coagulation Panel: No Data to Display Cardiac Panel: No Data to Display Arterial Blood Gas: No Data to Display Venous Blood Gas: No Data to Display Pancreas Panel: No Data to Display Thyroid Panel: No Data to Display Infectious Disease: Coronavirus (COVID-19)(PCR) Negative (Negative) 08/23/21 09:35 08/23/21 Coronavirus 2019 Source Nasal/Nares 08/23/21 09:35 08/23/21 Blood Cultures: No Data to Display Toxicology Panel: No Data to Display Anesthesia Assessment and Plan Anesthesia History Personal History: No History of Anesthesia Complications Family History: No Family History of Anesthesia Complications Exercise Tolerance Exercise Tolerance: Metabolic Equivalents>4 Pertinent Negatives Pertinent Negatives: No Symptoms of GERD Cardiac & Pulmonary Exam Cardiac Exam: Normal S1/S2 Heart Sounds Pulmonary Exam: Clear Bilateral Breath Sounds Implantable Cardiac Device Does patient have a Pacemaker or an ICD?: No Airway Exam Known Difficult Airway: No Mallampati Class: 3 Mouth Opening: Normal (> 3cm) Thyromental Distance: Greater than 3 cm Neck Range of Motion: Full ROM Neck Circumference: Normal Teeth Condition: Generalized Poor Dentition and Loose or Chipped ASA Classification ASA Score: ASA 2 Emergency Case?: No NPO Status NPO Status: NPO Clears >2 hours, Solids >8 hours Anesthesia Plan Resuscitation Status: Full Code Anesthesia Technique: MAC Anesthesia Airway Planned: Natural Airway Monitors Used: Standard Monitors
[2021-08-25 12:50] VITALS: BMI 29.9
[2021-08-25] MEDS: Lidocaine 2% Jelly 6 ML SYR (13:10)
[2021-08-25] MEDS: Povidone-Iodine Ophth 30 ML BTL (13:10)
[2021-08-25] MEDS: Tetracaine 0.5% 4 ML BTL OS (13:10)
[2021-08-25] MEDS: Duovisc Viscoelastic System EACH 1 EACH (13:23)
[2021-08-25] MEDS: Balanced Salt Soln.-PLUS 500 ML BAG (13:23)
[2021-08-25 13:55] VITALS: BP 128/80; PULSE 92; RESP 16; TEMP 37.1; O2SAT 98
--- NOTE | 2021-08-25 13:58 | W.PM.DSUDISC ---
Discharge Plan Disposition Patient Disposition: HOME Condition: Good Discharge Details Attending Provider: Denys Guillen Primary Care Provider: Barbi Mcdonald Home Meds and New Rx's Prescriptions: No Action (DME) Medicool's Diasox Large 1 EACH misc 1 ea EXT DAILY 0RF Label Comments: 01/04/14- Pt has ordered but has not received them yet lisinopril 5 MG tablet 2.5 mg PO DAILY 0RF atorvastatin 40 mg tablet 40 mg PO DAILY 0RF Label Comments: TAKE 1 TABLET BY MOUTH DAILY aspirin 81 mg Tablet 81 mg PO DAILY 0RF diclofenac sodium 1 % kit 4 g topical QID Qty: 1 0RF Rx Instructions: apply to single knee, ankle, foot; for foot includes sole/toes/top of foot Invokana 100 mg tablet 100 mg PO DAILY AM 0RF Label Comments: TAKE ONE TABLET BY MOUTH EVERY DAY metformin 1,000 mg Tablet 1,000 mg PO BID 0RF vitamin B complex Tablet 1 tab PO DAILY 0RF Discharge Instructions Stand Alone Forms: Post-op Topical Cataract, Katy Sprague (DSU) Discharge Orders Discharge Orders: Discharge Order (Routine); Ordered 08/25/21 Ordered By: Denys Guillen DS: Diagnosis Discharge Diagnosis (1) Nuclear sclerotic cataract of left eye: Status: Resolved (2) Posterior subcapsular age-related cataract of left eye: Status: Resolved
--- NOTE | 2021-08-25 13:59 | ROE_ITS ---
Date of service: 08/25/21 Time of Service: 13:59 Operative Note Operative Note DATE OF PROCEDURE: 08/25/21 PRE-OP DIAGNOSIS: Nuclear/posterior subcapsular cataract, left eye POST-OP DIAGNOSIS: same PROCEDURE: Cataract extraction using phacoemulsification with intraocular lens implant, left eye SURGEON: Denys Guillen ANESTHESIA TYPE: Local By Surgeon and MAC Refer to Anesthesia Record PATHOLOGY: none sent COMPLICATIONS: None Patient was transported to: same day Patient's condition: stable Implants: Shravan and Shravan / [employer] Tecnis [id number] Indications: Progressive decreased vision due to cataract, left eye Procedure Description: CATARACT SURGERY OPERATIVE REPORT PREOPERATIVE DIAGNOSIS: 1. Nuclear/posterior subcapsular cataract, left eye POSTOPERATIVE DIAGNOSIS: Same OPERATION: 1. Cataract extraction using phacoemulsification with posterior chamber intraocular lens implant, left eye. IOL: IOL Front Office Administrator/Model: Shravan & Shravan / SIGIFREDO Tecnis [id number] IOL Power: + 10.5 diopters IOL Serial Number: [id number] Optic Diameter: 6.0 mm Haptic/Overall Diameter: 13.0 mm PHACO INFO: Michael Sribuurion Vision System with OZil and Active Fluidics Cumulative Dispersed Energy (CDE): 3.96 seconds SURGEON: Denys Guillen MD, JAIR ANESTHESIA: Monitored A [facility] (MAC), with local sub-tenon's anesthetic infiltration COMPLICATIONS: None SPECIMENS: None INDICATIONS FOR PROCEDURE: The patient is a 65-year-old lady with history of diminished visual acuity in her left eye secondary to the development of nuclear and posterior subcapsular cataract. She has a history of high myopia. She has already undergone cataract surgery in the right eye and is doing well postoperatively. She now presents for cataract surgery in the left eye. PROCEDURE: The correct surgical eye was identified and marked as the left eye and the pupil was dilated in the preoperative area using mydriatics and cycloplegics. The dilated pupil size was 8.0 mm. She elected to proceed without oral sedation. The patient was brought to the operating room where cardiopulmonary monitoring was instituted and surgical time-out was performed, confirming the correct operative eye and IOL power. Topical anesthesia was administered and ophthalmic povidone-iodine 5% was instilled into the conjunctival fornices. Lidocaine gel was applied to the cornea and the neil-ocular area was prepped with Betadine 10% solution and draped in the usual sterile fashion for intraocular surgery, including an aperture drape. A Tegaderm transparent film dressing was cut in half and used to cover the lashes and lid margins. Care was taken to sequester the lashes and lid margins under the Tegaderm dressing. A lid speculum was placed between the lids of the operative eye and the Michael [employer] operating microscope was maneuvered into position. Donavon scissors were then used to make a conjunctival buttonhole approximately 6mm posterior to the limbus in the inferonasal quadrant. Blunt dissection was carried out to expose bare sclera, and a blunt-tipped sub-tenon?s anesthesia cannula was introduced and passed posteriorly along the globe where non- preserved plain lidocaine was injected into posterior sub-Tenon?s space. A sideport knife was used to make a paracentesis port superiorly/superiortemporally. Intraocular phenylephrine/lidocaine was injected int the anterior chamber.. The anterior chamber was filled with viscoelastic. A 2.4mm keratome knife was used to create a half-thickness groove at the limbus and then to construct a three-plane near-clear corneal tunnel extending 2.0mm into clear cornea at the 3:00 position. A flap was raised on the anterior capsule and capsulorhexis forceps were used to complete a continuous curvilinear capsulorhexis of 4.8 mm. Corneal epithelium was noted to be very hazy, despite aggressive irrigation and turning of the microscope light. View of the capsule/lens was suboptimal. Balanced salt solution was then used to perform cortical cleaving hy drodissection and nuclear hydrodelineation until the lens could be freely rotated within the capsular bag. The lens nucleus was then disassembled and removed within the capsular bag and iris plane using phacoemulsification. Residual cortical material was removed using the 45-degree angled silicone I/A tip with 0.3mm port. The posterior capsule was carefully polished to remove as much residual lens epithelial cells as safely possible. The capsular bag was then inflated and the anterior chamber deepened with viscoelastic. The lens implant described above was inserted into the capsular bag using the SIGIFREDO [place] Injector. A Kuglen hook was used to dial the IOL into position. Residual viscoelastic was then removed first from posterior to the IOL, then from the anterior chamber using the I/A handpiece. The lens implant was noted to center nicely within the capsular bag. The incisions were stromally hydrated, and the anterior chamber was reformed using BSS. Then 0.5cc of moxifloxacin 1.0mg/ml were injected into the capsular bag and anterior chamber. The incisions were checked with a Weck spear and found to be secure. Several drops of ophthalmic povidone-iodine 5% were then applied to the eye followed by two drops of Imprimis combination prednisolone/moxifloxacin/nepafenac solution. The drapes were removed and a clear plastic protective eye shield was placed over the eye. The patient was then returned to Same Day Surgery in stable condition.
--- NOTE | 2021-08-25 14:25 | W.ANESPOSTOP ---
Postoperative Evaluation Date, Time and Location Date Performed: 08/25/21 Time Performed: 14:00 Patient Location: Day Surgery Unit Vital Signs Most Recent Imported Vital Signs: Most Recent Vital Signs Temp Pulse Resp BP Pulse Ox 37.1 C 92 H 16 128/80 98 08/25/21 13:55 08/25/21 13:55 08/25/21 13:55 08/25/21 13:55 08/25/21 13:55 Pain Score Most Recent Pain Score: Most Recent Pain Score Pain Level 0 08/25/21 13:55 Assessment Mental Status: Awake (Alert & Oriented to Patient Baseline) Airway and Respiratory Function: Patent airway with normal (patient baseline) respiratory exam Cardiovascular Function: Hemodynamically Stable Hydration Status: Adequately Hydrated Nausea & Vomiting: No Nausea or Vomiting Pain: Pt. Denies Any Pain Peripheral Nerve Block: Patient did not receive a nerve block
== END 2021-08-25 14:16 | disposition home or self-care (01) ==
PROVIDERS: PCP Nurse Practitioner Family; Visit Provider Ophthalmology
PROC: (CPT 66984; principal; 2021-08-25 12:45)
DX: H25.042 Posterior subcapsular polar age-related cataract, left eye (principal); E11.9 Type 2 diabetes mellitus without complications; I10 Essential (primary) hypertension; E78.00 Pure hypercholesterolemia, unspecified; E66.9 Obesity, unspecified
CPT/HCPCS: 66984; V2632

== ENCOUNTER 2021-10-26 01:45 | Outpatient (CLI) | payer MEDICARE, SELFPAY ==
--- NOTE | 2021-10-26 15:00 | DI.DEXA_ITS ---
Exam(s) XR DEXA BONE DENSITY W/WO AMINTA EXAM: XR DEXA BONE DENSITY W/WO AMINTA CLINICAL HISTORY: MENOPAUSAL, Z78.0 TECHNIQUE: COMPARISON: CR LEFT FOREARM from 01/19/2011 FINDINGS: DEXA scan was performed according to the usual protocol. Please see the accompanying data sheets. Findings for left hip scanning are T-score -1.3 with left femoral neck T-score -0.8. Lumbar spine scanning shows T-score 0.5. Forearm scanning of the left forearm shows T-score -0.2. IMPRESSION: Findings are consistent with osteopenia according to the WHO criteria. Please note that the lateral vertebral scanogram shows an anterior compression of the vertebral body of what appears to be T11. RADIATION DOSE DELIVERED: Total DLP
== END 2021-10-26 02:05 ==
PROVIDERS: PCP Nurse Practitioner Family; Visit Provider Nurse Practitioner Family
DX: Z78.0 Asymptomatic menopausal state (principal)
CPT/HCPCS: 77080

== ENCOUNTER → 2021-12-20 02:08 | Outpatient (CLI) | payer MEDICARE, SELFPAY ==
--- NOTE | 2021-12-20 | DI.US_ITS ---
Exam(s) US THYROID EXAM: US THYROID CLINICAL HISTORY: THYROID NODULE, E04.1. TECHNIQUE: Ultrasound thyroid performed using standard protocol. COMPARISON: No exams were available for comparison FINDINGS: Both thyroid lobes exhibit normal size. However, nodules in both lobes, nodules in the right lobe mo re lobe. RIGHT THYROID LOBE: Measures 0.3 cm AP x 3 cm wide x 5.5 cm craniocaudal There are 2 dominant contiguous nodules in the right lobe Nodule #1 this is the more superior nodule Size: Measures 2.5 cm craniocaudal by 2.3 cm x 1.7 cm. Cm Composition: Solid-2 points Echogenicity: Isoechoic-1 point Shape: Wider than taller-0 points Margin: Smooth- 0 points Echogenic Foci: Contains 2 types of echogenic foci, both punctate and macrocalcifications. Therefore echogenic foci account for a total of 4 point. Total Points for this nodule: 8 ACR Ti-Rads Category: TR5. This nodule will require ultrasound-guide d FNA. Nodule #2 . This nodule is just below the other nodule and is larger than the other nodule in the r ight lobe. Size: Measures 3.4 cm x 1.4 cm x 3.3 cm. Cm Composition: Solid-2 points Echogenicity: Isoechoic-1 point Shape: Wider than taller- 0 points Margin: Smooth-0 points Echogenic Foci: None-0 points Total points for this nodule: 3 ACR Ti-Rads Category: TR3. However, this nodule requires ultrasound- guided FNA given that it is greater than 2.5 cm size. LEFT THYROID LOBE: Measures 1.0 cm AP x 1.1 wide x 4.4 cm craniocaudal There are 4 findings in the left lobe, 2 superiorly and 1 inferiorly which are non dominant and not g raded on this study. The main nodule in the left lobe is as follows: Nodule #1 Size: Measures measures 1.4 x 0.7 x 1.0 cm cm Composition: Mixed [id number]-9 points Echogenicity: Hypoechoic-2 points Shape: Wider than taller in the transverse plane-0 points Margin: Smooth-0 points Echogenic Foci: None-0 points Total points for this nodule: 3 ACR Ti-Rads Category: 3. This nodule does not require biopsy LYMPH NODES: There is no significant adenopathy. IMPRESSION: 1. Bilateral nodules as described above. Both nodules in the right lobe require ultrasound-guided FN A. 2. The nodule in the left lobe does not require ultrasound-guided FNA. 3. There is no significant lymphadenopathy. DATA REPOSITORY:
== END ==
PROVIDERS: PCP Nurse Practitioner Family; Visit Provider Nurse Practitioner Family
DX: E04.2 Nontoxic multinodular goiter (principal)
CPT/HCPCS: 76536

== ENCOUNTER → 2022-01-30 00:50 | Outpatient (CLI) | payer MEDICARE, SELFPAY ==
--- NOTE | 2022-01-30 | DI.MAMMO_ITS ---
Exam(s) MAMMO SCREENING EXAM: MAMMO SCREENING CLINICAL HISTORY: SCREENING, Z12.31. TECHNIQUE: Bilateral full field digital CC and MLO mammographic images were obtained with 3D tomosyn thesis and utilizing computer aided detection (CAD). COMPARISON: Prior mammograms were reviewed, the most recent being 2013. FINDINGS: There has been no significant change in the appearance and distribution of the fibroglandular tissue. No new significant radiograph findings in left breast. In the right breast there is suggestion of small nodular density laterally, more so than previous, th is located approximately 4 cm in from the nipple. Spot compression view recommended Malignant-appearing microcalcification groups is region or elsewhere in either breast. There is no significant architectural distortion nor skin thickening-retraction. IMPRESSION: 1. No radiographic evidence of malignancy in left breast. 2. Possible right breast nodule. Spot compression view and ultrasound recommended BI-RADS Category 0 - Assessment Incomplete: Need additional imaging evaluation Breast Density - Category B - Scattered areas of fibroglandular density Breast density Category C or D implies that the patient has dense breast tissue. Dense breast tissue can make it harder to find cancer on a mammogram. Dense breast tissue is also associated with an incr eased risk of breast cancer. This information about the result of the mammogram report was provided to the patient to raise their awareness. Use this report when you speak with the patient about their risks for breast cancer, which includes their family history. At that time, you may recommend additional screening tests (Ultrasoun d or MRI) as these tests may add significant information. A negative radiographic report should not delay biopsy if a dominant or clinically suspicious mass is present. Up to ten percent of cancers are not identified on mammography. A negative report may reinforce clinical impression. Adenosis and dense breasts may obscure an underlying neoplasm. False positive reports average 6 to 10%. Patient will receive a letter notifying them of these results.
== END ==
PROVIDERS: PCP Nurse Practitioner Family; Visit Provider Family Medicine
DX: Z12.31 Encounter for screening mammogram for malignant neoplasm of breast (principal); R92.8 Other abnormal and inconclusive findings on diagnostic imaging of breast
CPT/HCPCS: 77063; 77067

== ENCOUNTER → 2022-02-05 02:11 | Outpatient (CLI) | payer MEDICARE, SELFPAY ==
--- NOTE | 2022-02-05 | DI.MAMMO_ITS ---
Exam(s) MAMMO SCREEN CALL BACK UNI EXAM: MAMMO SCREEN CALL BACK UNI -RIGHT CLINICAL HISTORY: F/U ABNL MAMMO, POSSIBLE RT BREAST NODULE, SMALL NODULAR DENSITY RT. TECHNIQUE: Unilateral spot mammographic images obtained with 3D tomosynthesisand utilizing computer aided detection (CAD). . COMPARISON: Prior mammograms were reviewed. MOST RECENT MAMMOGRAM WAS 2013. this additional imaging was performed due to findings described on the recent screening mammogram of 01/30/2022. FINDINGS: Additional mammographic views performed todayrender this area somewhat less concerning and more simil ar in appearance to 2014.. Apparently ultrasound was not able to be performed today and will be scheduled. IMPRESSION: As above. Follow-up right breast ultrasound recommended. The patient was informed of these findings and recommendations prior to leaving the department today. BI-RADS Category 0 - Assessment Incomplete: Need additional imaging evaluation Breast Density - Category B - Scattered areas of fibroglandular density Breast density Category C or D implies that the patient has dense breast tissue. Dense breast tissue can make it harder to find cancer on a mammogram. Dense breast tissue is also associated with an incr eased risk of breast cancer. This information about the result of the mammogram report was provided to the patient to raise their awareness. Use this report when you speak with the patient about their risks for breast cancer, which includes their family history. At that time, you may recommend additional screening tests (Ultrasoun d or MRI) as these tests may add significant information. A negative radiographic report should not delay biopsy if a dominant or clinically suspicious mass is present. Up to ten percent of cancers are not identified on mammography. A negative report may reinforce clinical impression. Adenosis and dense breasts may obscure an underlying neoplasm. False positive reports average 6 to 10%. Patient will receive a letter notifying them of these results.
== END ==
PROVIDERS: PCP Nurse Practitioner Family; Visit Provider Family Medicine
DX: Z12.31 Encounter for screening mammogram for malignant neoplasm of breast (principal); R92.8 Other abnormal and inconclusive findings on diagnostic imaging of breast
CPT/HCPCS: 77063; 77067

== ENCOUNTER → 2022-02-07 02:12 | Outpatient (CLI) | payer MEDICARE, SELFPAY ==
--- NOTE | 2022-02-07 12:45 | DI.US_ITS ---
Exam(s) US BREAST RT LIMITED EXAM: US BREAST RT LIMITED CLINICAL HISTORY: SMALL NODULAR DENSITY LATERALLY 4 CM FROM NIPPLE TECHNIQUE: Ultrasound right breast performed using standard protocol. COMPARISON: MG MG MAMMO SCREENING from 01/30/2022 MG MG MAMMO SCREEN CALL BACK UNI from 02/05/2022 FINDINGS: No solid or cystic masses, hypoechoic foci, areas of abnormal shadowing, or areas of skin thickening. IMPRESSION: 1. No sonographically suspicious finding. 2. Unless there is more urgent need, follow-up screening mammography is recommended, as per [place] [employer] guidelines. 3. The findings were discussed with the patient on the date of the examination. BI-RADS Cat 1 - Negative Breast Density - Category B - Scattered areas of fibroglandular density DATA REPOSITORY:
== END ==
PROVIDERS: PCP Nurse Practitioner Family; Visit Provider Family Medicine
DX: R92.8 Other abnormal and inconclusive findings on diagnostic imaging of breast (principal)
CPT/HCPCS: 76642

== ENCOUNTER 2022-03-12 15:25 | Outpatient (CLI) | payer MEDICARE, SELFPAY ==
[2022-03-12 17:31] LABS: FREE T4 0.84 ng/dL (0.76-1.46)
== END 2022-03-12 15:26 | disposition home or self-care (01) ==
LOC: LBO 15:26
PROVIDERS: PCP Nurse Practitioner Family; Visit Provider Internal Medicine Endocrinology, Diabetes & Metabolism
DX: E05.90 Thyrotoxicosis, unspecified without thyrotoxic crisis or storm (principal)
CPT/HCPCS: 36415; 84439; 84443

== ENCOUNTER 2022-07-04 12:37 | Emergency (ER) | payer MEDICARE, SELFPAY ==
[2022-07-04 12:45] VITALS: BP 173/82; PULSE 119; RESP 17; TEMP 36.7; O2SAT 94
--- NOTE | 2022-07-04 14:24 | DI.RAD_ITS ---
Exam(s) XR PORTABLE CHEST AP EXAM: XR PORTABLE CHEST AP CLINICAL HISTORY: cough, fever. TECHNIQUE: 2D digital imaging was performed. COMPARISON: No exams were available for comparison FINDINGS: Single AP portable view. Heart size is upper normal. The mediastinum is not widened. Lungs are clear. No infiltrates nor obvious pleural effusions. IMPRESSION: No acute pulmonary findings on this single AP portable view of the chest. DATA REPOSITORY: RADIATION DOSE DELIVERED:
[2022-07-04 14:38] VITALS: RESP 4
[2022-07-04] MEDS: Ondansetron 4 MG/2 ML VIAL IVP (14:38)
[2022-07-04] MEDS: Albuterol/Ipratropium 3 ML UPD VIAL UPD (14:38)
[2022-07-04] MEDS: Normal Saline 1,000 ML 1000 ML IV (14:39)
[2022-07-04] MEDS: ACETAMINOPHEN 1,000 MG/100 ML BTL 400 MG IVPB (14:39)
[2022-07-04 14:41] LABS: Abs Immature Grans 0.02 10^3/uL (0.0-0.06); Absolute Basophil Count 0.03 10^3/uL (0.0-0.2); Absolute Lymphocyte Count 0.32 10^3/uL (1.2-3.4); Absolute Neutrophil Count 4.26 10^3/uL (1.2-6.7); Basophils % 0.6; HCT 39.2 % (36.0-46.0); HGB 12.7 g/dL (11.2-15.7); Immature Grans % 0.4; MCH 29.3 pg (27.0-33.0); MCHC 32.4 % (32.0-36.0); MCV 90 fL (80-95); MPV 9.7 fL (8.0-11.0); Monocytes % 13.1; Neutrophils % 79.9; Platelet Count 223 10^3/uL (130-400); RBC 4.34 10^6/uL (3.93-5.22); RDW 12.7 % (11.7-14.6); RDW-SD 42.2 fL; WBC 5.33 10^3/uL (4.4-10.8)
[2022-07-04 15:05] LABS: ALT 29 U/L (14-59); AST 28 U/L (15-37); Albumin 3.8 g/dL (3.4-5.0); Alkaline Phosphatase 77 U/L (46-116); Anion Gap 8.2 mmol/L (3-11); BUN 10 mg/dL (7-18); Bilirubin, Total 0.3 mg/dL (0.2-1.0); CO2 27.8 mmol/L (21.0-32.0); CREATININE 0.8 mg/dL (0.55-1.02); Calcium 9.2 mg/dL (8.5-10.1); Chloride 103 mmol/L (98-107); Estimated GFR 81.21 (mL/min/1.73m2); Glucose 175 mg/dL (74-106); Sodium 139 mmol/L (136-145); Total Protein 7.9 g/dL (6.4-8.2)
[2022-07-04 15:25] LABS: Bilirubin Negative (Negative); Blood Negative (Negative); Clarity Clear (Clear); Glucose >=1000 mg/dL (Negative); Ketones 40 mg/dL (Negative); Leukocyte Esterase Negative (Negative); Nitrite Negative (Negative); Urobilinogen 0.2 EU/dL (Up TO 0.2)
--- NOTE | 2022-07-04 15:38 | ED.GENADUL_ITS ---
Discharge Plan Disposition Patient Disposition: Home Condition: Stable Discharge Details Clinical Impression: Influenza A Primary Care Provider: Barbi Mcdnoald ED Provider: Haritha Monet Home Meds and New Rx's Prescriptions: New oseltamivir [Tamiflu] 75 mg capsule 75 mg PO BID 5 Days Qty: 10 0RF benzonatate 100 mg capsule 100 mg PO Q6H PRNQty: 10 0RF Continued (DME) [facility] Diasox Large 1 EACH misc 1 ea EXT DAILY Label Comments: 01/04/14- Pt has ordered but has not received them yet lisinopril 5 MG tablet 2.5 mg PO DAILY atorvastatin 40 mg tablet 40 mg PO DAILY Label Comments: TAKE 1 TABLET BY MOUTH DAILY aspirin 81 mg Tablet 81 mg PO DAILY metformin 1,000 mg Tablet 1,000 mg PO BID Farxiga 5 mg tablet 1 tab PO DAILY Label Comments: TAKE ONE TABLET BY MOUTH EVERY MORNING Rybelsus 3 mg tablet 2.5 tab PO DAILY Label Comments: TAKE ONE TABLET BY MOUTH EVERY DAY Discharge Instructions Instructions: H1N1 Influenza (ED) Additional Instructions: Take Tamiflu as prescribed Use your inhaler, 2 puffs every 4-6 hours as needed for cough Tessalon as needed for cough Tylenol 650 mg every 4 6 hours as needed for fever and chills Return earlier should he have new or worsening complaints Referrals: Barbi Mcdonald [Primary Care Provider] - Discharge Data Discharge Date/Time-TO BE ENTERED AT DEPARTURE: 07/04/22 17:23 Medical Decision Making 66-year-old female presents with flulike illness, therefore. Was ordered and diagnostic blood work based on her age and comorbidities in addition to her tachycardia Patient is tachycardic, she is febrile at 101, this is likely contributing to the tachycardia She is flu a positive She has not hypoxic Lungs are clear to auscultation Labs are reassuring Given 1 L of saline and pulse is improved to 102 Symptomatically improved, will give inhaler for home, Tamiflu secondary to age, and Tessalon Perles Return precautions reviewed and patient expressed understanding Will otherwise use supportive care and antipyretics at home Recheck with primary care physician in 24 to 48 hours recommended Medical Records Medical records reviewed: Yes I reviewed the patient's medical records. Lab Data Lab results reviewed: Yes I reviewed the patient's lab results. HPI General Date/Time Provider Initiated Documentation: 07/04/22 14:03 . HPI Narrative: this 66-year-old female presents with report of flulike illness, fever, chills, cough. Vaccinated for flu. Denies any chest pain or shortness of breath. Denies any nausea or vomiting. Reports headache with cough. Denies any stiff neck. Denies any additional complaints at this time. Related Data Home Medications Medication Instructions Recorded Confirmed compression socks, large 12/31/13 07/04/22 ([facility] Diasox Large) lisinopril 5 mg tablet 2.5 mg PO DAILY 04/01/14 07/04/22 aspirin 81 mg tablet 81 mg PO DAILY 04/07/21 07/04/22 atorvastatin 40 mg tablet 40 mg PO DAILY 04/07/21 07/04/22 metformin 1,000 mg tablet 1,000 mg PO BID 08/25/21 07/04/22 benzonatate 100 mg capsule 100 mg PO Q6H PRN #10 caps 07/04/22 dapagliflozin 5 mg tablet (Farxiga) 1 tab PO DAILY 07/04/22 07/04/22 oseltamivir 75 mg capsule (Tamiflu) 75 mg PO BID 5 days #10 caps 07/04/22 semaglutide 3 mg tablet (Rybelsus) 2.5 tab PO DAILY 07/04/22 07/04/22 Previous Rx's Medication Instructions Recorded benzonatate 100 mg capsule 100 mg PO Q6H PRN #10 caps 07/04/22 oseltamivir 75 mg capsule (Tamiflu) 75 mg PO BID 5 days #10 caps 07/04/22 Allergies Allergy/AdvReac Type Severity Reaction Status Date / Time adhesive Allergy Intermediate Skin Rash Verified 07/04/22 12:49 venom-honey bee Allergy Intermediate Anaphylaxis Verified 07/04/22 12:49 [bee venom (honey bee)] General Stated Complaint: RespSymp LAINA: 3 Review of Systems All systems reviewed & are unremarkable except as noted in HPI and below PFSH All Active Problems (Updated 07/04/22 @ 15:45 by SAMIA Amaral) Influenza A (Acute) Acute hip pain (Acute) Elbow injury (Acute) Acute knee pain (Acute) Medical History Diabetes mellitus HTN (hypertension) Hypercholesterolemia Obesity Surgical History Hx of external ear surgery reattachment of left ear S/P arthroscopic knee surgery S/P oophorectomy Social History Smoking/Tobacco Use Status: Never Smoking risk assessment performed?: Yes Alcohol Intake: never Drug use: Never Substance use type: does not use Do you feel safe at home: Yes Additional Social history: lives alone Exam Const General: cooperative, comfortable and no acute distress Neck Other: no meningismus Resp Effort & Inspection: normal respiratory effort Auscultation: clear to auscultation bilaterally Cardio Rate: tachycardic Rhythm: regular rhythm GI Inspection: normal to inspection Auscultation: normal bowel sounds Skin General skin exam: no rashes or lesions noted Neuro General: patient alert and patient oriented x3 Course Vital Signs Vital signs: Vital Signs Temperature 36.7 C 07/04/22 12:45 Pulse 119 H 07/04/22 12:45 Respiratory Rate 17 07/04/22 12:45 Blood Pressure 173/82 H 07/04/22 12:45 Pulse Oximetry 94 07/04/22 12:45 Temperature 36.7 C 07/04/22 12:45 Temperature Source Temporal Artery Scan 07/04/22 12:45 Pulse 119 H 07/04/22 12:45 Respiratory Rate 17 07/04/22 12:45 Respiratory Effort Non-Labored 07/04/22 12:47 Respiratory Depth Normal 07/04/22 12:47 Blood Pressure 173/82 H 07/04/22 12:45 Blood Pressure Position Sitting 07/04/22 12:45 Pulse Oximetry 94 07/04/22 12:45 Oxygen Delivery Method Room Air 07/04/22 12:45 Oxygen Flow Rate 0 07/04/22 12:45 Pain Level 8 07/04/22 12:45 Lab/Test Results Lab/Test Results: Laboratory Tests Range/Units 07/04/22 07/04/22 07/04/22 14:36 14:36 15:17 WBC (4.4-10.8) 10^3/uL 5.33 RBC (3.93-5.22) 10^6/uL 4.34 Hgb (11.2-15.7) g/dL 12.7 Hct (36.0-46.0) % 39.2 MCV (80-95) fL 90 MCH (27.0-33.0) pg 29.3 MCHC (32.0-36.0) % 32.4 RDW (11.7-14.6) % 12.7 Plt Count (130-400) 10^3/uL 223 MPV (8.0-11.0) fL 9.7 Immature Gran % 0.4 Neutrophils % 79.9 Lymphocytes % 6.0 Monocytes % 13.1 Eosinophils % 0.0 Basophils % 0.6 Nucleated RBC % (0.0-0.3) % 0.0 Absolute Neutrophils (1.2-6.7) 10^3/uL 4.26 Absolute Lymphocytes (1.2-3.4) 10^3/uL 0.32 L Absolute Monocytes (0.1-0.8) 10^3/uL 0.70 Absolute Eosinophils (0.0-0.7) 10^3/uL 0.00 Absolute Basophils (0.0-0.2) 10^3/uL 0.03 Sodium (136-145) mmol/L 139 Potassium (3.5-5.1) mmol/L 4.0 Chloride (98-107) mmol/L 103 Carbon Dioxide (21.0-32.0) mmol/L 27.8 Anion Gap (3-11) mmol/L 8.2 BUN (7-18) mg/dL 10 Creatinine (0.55-1.02) mg/dL 0.8 Est GFR (CKD-EPI 2020) (mL/min/1.73m2) 81.21 Glucose (74-106) mg/dL 175 H Calcium (8.5-10.1) mg/dL 9.2 Total Bilirubin (0.2-1.0) mg/dL 0.3 AST (15-37) U/L 28 ALT (14-59) U/L 29 Alkaline Phosphatase (46-116) U/L 77 Total Protein (6.4-8.2) g/dL 7.9 Albumin (3.4-5.0) g/dL 3.8 Urine Color (Yellow) Yellow Urine Clarity (Clear) Clear Urine pH (5-8) 5.0 Ur Specific [place] (1.005-1.025) 1.020 Urine Protein (Negative) mg/dL Negative Urine Ketones (Negative) mg/dL 40 H Urine Blood (Negative) Negative Urine Nitrite (Negative) Negative Urine Bilirubin (Negative) Negative Urine Urobilinogen (Up TO 0.2) EU/dL 0.2 Ur Leukocyte Esterase (Negative) Negative Urine Glucose (Negative) mg/dL >=1000 H
[2022-07-04] MEDS: Albuterol HFA 8 GM 60 PUFF INH IH (15:55)
[2022-07-04] MEDS: Inhaler, Assist Device 1 EACH MC (15:55)
== END 2022-07-04 17:23 | disposition home or self-care (01) ==
PROVIDERS: Emergency Provider Physician Assistant; PCP Nurse Practitioner Family
DX: J10.1 Influenza due to other identified influenza virus with other respiratory manifestations (principal); I10 Essential (primary) hypertension; E11.9 Type 2 diabetes mellitus without complications; Z20.822 Contact with and (suspected) exposure to COVID-19
CPT/HCPCS: 36415; 80053; 96361; 96365; 96366; 96375; 99284; 71045; 81003; 85025; J0131; J2405; J7620

== ENCOUNTER 2022-08-01 14:41 | Outpatient (REF) | payer MEDICARE, SELFPAY ==
[2022-08-01 15:48] LABS: Calculated LDL 73 mg/dL (<100); Cholesterol 158 mg/dL (<200); HDL Cholesterol 62 mg/dL (40-60); Triglyceride 117 mg/dL (<150)
== END 2022-08-01 14:42 | disposition home or self-care (01) ==
LOC: NCHCN 14:41
PROVIDERS: PCP Nurse Practitioner Family; Visit Provider Nurse Practitioner Family
DX: E78.5 Hyperlipidemia, unspecified (principal); E11.9 Type 2 diabetes mellitus without complications
CPT/HCPCS: 80061

== ENCOUNTER 2023-04-15 08:48 | Outpatient (CLI) | payer MEDICARE, SELFPAY ==
[2023-04-15 09:29] LABS: Abs Immature Grans 0.02 10^3/uL (0.0-0.06); Absolute Basophil Count 0.03 10^3/uL (0.0-0.2); Absolute Eosinophil Count 0.32 10^3/uL (0.0-0.7); Absolute Lymphocyte Count 3.79 10^3/uL (1.2-3.4); Absolute Monocyte Count 0.71 10^3/uL (0.1-0.8); Absolute Neutrophil Count 3.49 10^3/uL (1.2-6.7); Basophils % 0.4; Eosinophils % 3.8; HCT 42.3 % (36.0-46.0); HGB 13.5 g/dL (11.2-15.7); Immature Grans % 0.2; Lymphocytes % 45.3; MCH 29.3 pg (27.0-33.0); MCHC 31.9 % (32.0-36.0); MCV 92 fL (80-95); MPV 9.8 fL (8.0-11.0); Monocytes % 8.5; Neutrophils % 41.8; Platelet Count 280 10^3/uL (130-400); RBC 4.61 10^6/uL (3.93-5.22); RDW 13.1 % (11.7-14.6); RDW-SD 44.3 fL; WBC 8.36 10^3/uL (4.4-10.8)
[2023-04-15 09:56] LABS: ALT 16 U/L (14-59); AST 11 U/L (15-37); Albumin 3.6 g/dL (3.4-5.0); Alkaline Phosphatase 65 U/L (46-116); Anion Gap 10.8 mmol/L (3-11); BUN 23 mg/dL (7-18); Bilirubin, Total 0.4 mg/dL (0.2-1.0); CO2 24.2 mmol/L (21.0-32.0); CREATININE 0.8 mg/dL (0.55-1.02); Calcium 9.7 mg/dL (8.5-10.1); Chloride 104 mmol/L (98-107); Estimated GFR 80.71 (mL/min/1.73m2); Glucose 145 mg/dL (74-106); Potassium 4.4 mmol/L (3.5-5.1); Sodium 139 mmol/L (136-145); Total Protein 7.8 g/dL (6.4-8.2)
== END 2023-04-15 08:49 | disposition home or self-care (01) ==
LOC: LBO 08:49
PROVIDERS: PCP Nurse Practitioner Family; Visit Provider Orthopaedic Surgery Adult Reconstructive Orthopaedic Surgery
DX: Z01.818 Encounter for other preprocedural examination (principal); M16.11 Unilateral primary osteoarthritis, right hip
CPT/HCPCS: 36415; 80053; 85025